=== PATIENT | male | born 1950 | race Caucasian/White ===

== ENCOUNTER → 2017-10-10 | Outpatient (CLI) | payer OTHER ==
[~2017-10-10] MED LIST: ALLOPURINOL100 MG PO; APIDRA100 UNIT/2 SC; ATENOLOL PO; INDOMETHACIN75 MG PO; KEFLEX; LANTUS100 UNITS/ SC; LISINOPRIL40 MG PO; NIFEDIPINE ER60 MG PO; PRAVASTATIN SOD20 MG PO; TRADJENTA5 MG PO
[2017-10-10 15:41] LABS: BASOPHILS # (AUTO) 0.1 (0.0-0.1); BASOPHILS % 0.5 % (0.0-1.0); EOSINOPHILS # (AUTO) 0.2 (0.0-0.4); EOSINOPHILS % 1.7 % (0.0-6.0); HEMATOCRIT 26.4 % (38.2-49.6); HEMOGLOBIN 8.3 g/dL (14.0-18.0); LYMPHOCYTES % 7.1 % (18.0-39.1); MEAN CORPUSCULAR HEMOGLOBIN 29.1 pg (28-32); MEAN CORPUSCULAR HGB CONC 31.4 g/dL (31-35); MEAN CORPUSCULAR VOLUME 92.6 fL (81-99); MONOCYTES # (AUTO) 0.9 (0.2-0.8); MONOCYTES % 6.5 % (4.4-11.3); NEUTROPHILS # (AUTO) 11.2 (2.1-6.9); NEUTROPHILS % 81.4 % (38.7-80.0); PLATELET COUNT 373 x10e3/uL (140-360); RED BLOOD COUNT 2.85 x10e6/uL (4.3-5.7); RED CELL DISTRIBUTION WIDTH 20.5 % (11.7-14.4)
[2017-10-10 16:40] LABS: EOSINOPHILS % (MANUAL) 2 % (0-7); LYMPHOCYTES % (MANUAL) 2 % (19-48); MONOCYTES % (MANUAL) 9 % (3.4-9.0); NEUTROPHILS % (MANUAL) 87 % (40-74)
[2017-10-10 16:41] LABS: HYPOCHROMASIA MODERATE; NUCLEATED RED BLOOD CELLS 3
[2017-10-10 16:42] LABS: ANISOCYTOSIS SLIG; BURR CELLS SLIGHT; HELMET CELLS SLIGHT; PLATELET ESTIMATE ADEQUATE; PLATELET MORPHOLOGY COMMENT NORMAL; POIKILOCYTOSIS SLIGHT; RBC MORPHOLOGY COMMENT ABNORMAL
== END ==
LOC: NPA 12:30
PROVIDERS: ATTEND Internal Medicine Hematology & Oncology
DX: Z02.9 Encounter for administrative examinations, unspecified (principal)
CPT/HCPCS: 36415; 83036; 85025